=== PATIENT | female | born 1980 | race Two or more races ===

== ENCOUNTER → 2024-06-19 | Emergency (ER) | payer OTHER ==
[~2024-06-19] VITALS: Ht 160 cm; Wt 64.0 kg
[~2024-06-19] MED LIST: KETOROLAC TROMETHAMINE 30 MG VIAL IM STA; KETOROLAC TROMETHAMINE 30 MG VIAL ONE; ORPHENADRINE CITRATE 30 MG/ML AMPUL IM STA; ORPHENADRINE CITRATE 30 MG/ML AMPUL ONE
== END | disposition home or self-care (01) ==
LOC: ER 19:54
DX: R20.2 Paresthesia of skin (principal); Z88.8 Allergy status to other drugs, medicaments and biological substances; M54.2 Cervicalgia